=== PATIENT | female | born 1990 | race Caucasian/White ===

== ENCOUNTER 2016-11-25 17:41 | Emergency (ER) | payer OTHER ==
[~2016-11-25] VITALS: Wt 70.0 kg
[~2016-11-25 17:41] MED LIST: ALBU8.5H3 INH; HYDR-905 PO; IBUP800T25 PO
[2016-11-25] MEDS ORDERED: HYDR-906 PO ×2 (18:33→18:39)
[2016-11-25] MEDS ORDERED: DOXY100T20 PO (18:33)
[2016-11-25] MEDS ORDERED: DIPH28.33 TP (18:33)
--- NOTE | 2016-11-25 20:33 | ERD ---
ER Documentation Chief Complaint Date/Time DATE: 11/25/16 TIME: 20:29 Chief Complaint Insect bite to right thigh HPI 26-year-old female patient with a past medical history of asthma presents to the ED complaining of a rash noted on her right inner and outer thigh. States that she was standing outside of her house in [place] and felt something bite her but is unsure what bit her. States that she started to notice a rash on the right inner thigh 4 days ago and a new one interrupted 3 days ago. Reports that she saw her primary care physician, Dr. Justin Wilson and he prescribed her Zithromax, Bactrim and ibuprofen. States that she is taking 1 dose of the antibiotics. States that her rashes do itch and is very painful. Denies seeing any ticks, mosquitoes. Denies any fever, chills, weakness, loss of sensation, loss of range of motion, chest pain, shortness of breath, nausea, vomiting. ROS All systems reviewed and are negative except as per history of present illness. Medications Home Meds Active Scripts Hydrocodone/Acetaminophen (Strasburg 5-325 Tablet) 1 Each Tablet, 1 TAB PO Q6H Y for PAIN, #7 TAB Prov:YANELY FRANCISCO PA-C 11/25/16 Diphenhydramine Hcl/Zinc Acet (Benadryl Itch Stopping Crm) 28.3 Gm Cream.gm., 1 APPLIC TP BID, #1 TUB Prov:YANELY FRANCISCO PA-C 11/25/16 Doxycycline Hyclate* (Doxycycline Hyclate*) 100 Mg Tablet.dr, 100 MG PO BID for 10 Days, TAB Prov:YANELY FRANCISCO PA-C 11/25/16 Hydrocodone/Acetaminophen (Strasburg 7.5-325 Tablet) 1 Each Tablet, 1 EACH PO every 4-6 hours, #14 TAB Prov:BAIRON SULLIVANSTOLOS A. DO 05/18/16 Ibuprofen* (Motrin*) 800 Mg Tab, 800 MG PO Q6H Y for PAIN AND OR ELEVATED TEMP, #30 TAB Prov:LEKKOSBAIRONSTOLOS A. DO 05/18/16 Reported Medications Albuterol Sulfate* (Proair HFA*) 8.5 Gm Hfa.aer.ad, 1-2 PUFF INH QID Y for SHORTNESS OF BREATH, INH 05/16/14 Allergies Allergies: Coded Allergies: No Known Allergy (Unverified , 05/16/14) PMhx/Soc History of Surgery: No Anesthesia Reaction: No Hx Neurological Disorder: No Hx Respiratory Disorders: Yes (asthma) Hx Cardiac Disorders: No Hx Psychiatric Problems: No Hx Miscellaneous Medical Probl: Yes (MIGRAINES) Hx Alcohol Use: No Hx Substance Use: No Hx Tobacco Use: No Physical Exam Vitals Vital Signs Date Time Temp Pulse Resp B/P Pulse Ox O2 Delivery O2 Flow Rate FiO2 11/25/16 17:51 98.8 80 20 129/81 98 Physical Exam Const: [id number], well-nourished. In no acute distress. Head: Atraumatic, normocephalic Eyes: Normal Conjunctiva without injection ENT: Normal external ear, nose and mouth. Neck: Full range of motion. No meningismus. Resp: Clear to auscultation bilaterally. No wheezing, rhonchi, rales, or crackles. No accessory muscle use. No retractions. Cardio: Regular rate and rhythm, no murmurs Skin: No petechiae or rashes Back: No midline tenderness. No CVA tenderness. Ext: No cyanosis, or edema. Cap refill less than 2 seconds. Distal pulses intact bilaterally. 7 cm blanching erythematous rash surrounding a 3 cm beefy red circular rash in the middle with slight yellowish and ecchymotic appearance right inner thigh. 2 cm blanching erythematous rash noted on the lateral aspect of patient's right young. No fluctuance, bleeding, induration, lymphatic streaking noted. Neur: Awake and alert. Normal gait and coordination. Muscle strength 5/5. Sensation intact bilaterally. Psych: Normal Mood and Affect Procedures/MDM This is a 26-year-old female patient with a past medical history of asthma presents to the ED complaining of an insect bite to her right thigh and right lateral young. Patient is afebrile and nontoxic-appearing. Patient has normal vital signs. Patient's rash could likely be secondary to an insect bite however due to its target-like lesion, this case was discussed with my supervising physician, Dr. Resendez who stated that we can change the Zithromax antibiotics to doxycycline. Patient is mainly here for pain. Patient will be given a course of Strasburg for breakthrough pain. Patient now should be completing the course of Bactrim, doxycycline. Other differential diagnosis considered include but is not limited to allergic contact dermatitis, urticaria , insect bites, eczema, tinea infection, psoriasis. Low suspicion for scabies, SJS/TEN, erythema multiforme, sepsis, cellulitis, necrotizing fascitis, gangrene , meningococcemia or other emergent conditions. Discharge medications: Strasburg, Benadryl itch cream, doxycycline Follow up with primary care physician in 2-3 days for a wound check. Instructed patient to return to the ED sooner for any worsening symptoms. Patient's questions were answered. Patient understood and agreed with discharge plan. Patient discharged stable. Departure Diagnosis: Primary Impression: Insect bite Encounter type: initial encounter Qualified Code: W57.XXXA - Insect bite, initial encounter Condition: Stable Patient Instructions: Preventing Lyme Disease, Insect Bite Referrals: [facility] YOU HAVE RECEIVED A MEDICAL SCREENING EXAM AND THE RESULTS INDICATE THAT YOU DO NOT HAVE A CONDITION THAT REQUIRES URGENT TREATMENT IN THE EMERGENCY DEPARTMENT. FURTHER EVALUATION AND TREATMENT OF YOUR CONDITION CAN WAIT UNTIL YOU ARE SEEN IN YOUR DOCTORS OFFICE WITHIN THE NEXT 1-2 DAYS. IT IS YOUR RESPONSIBILITY TO MAKE AN APPOINTMENT FOR FOLOW-UP CARE. IF YOU HAVE A PRIMARY DOCTOR --you should call your primary doctor and schedule an appointment IF YOU DO NOT HAVE A PRIMARY DOCTOR YOU CAN CALL OUR PHYSICIAN REFERRAL HOTLINE AT IF YOU CAN NOT AFFORD TO SEE A PHYSICIAN YOU CAN CHOSE FROM THE FOLLOWING [facility] [address] [facility]. [facility] [address] [facility] [facility] [address] [facility] [address] [facility]. [facility] [address] [facility]. [facility]. [address] [facility]. [facility] YOU HAVE RECEIVED A MEDICAL SCREENING EXAM AND THE RESULTS INDICATE THAT YOU DO NOT HAVE A CONDITION THAT REQUIRES URGENT TREATMENT IN THE EMERGENCY DEPARTMENT. FURTHER EVALUATION AND TREATMENT OF YOUR CONDITION CAN WAIT UNTIL YOU ARE SEEN IN YOUR DOCTORS OFFICE WITHIN THE NEXT 1-2 DAYS. IT IS YOUR RESPONSIBILITY TO MAKE AN APPOINTMENT FOR FOLOW-UP CARE. IF YOU HAVE A PRIMARY DOCTOR --you should call your primary doctor and schedule and appointment IF YOU DO NOT HAVE A PRIMARY DOCTOR YOU CAN CALL OUR PHYSICIAN REFERRAL HOTLINE AT . IF YOU CAN NOT AFFORD TO SEE A PHYSICIAN YOU CAN CHOSE FROM THE FOLLOWING [facility] INSTITUTIONS: [facility] [address] [place] [address] [facility] [address] [place], [place] [id number] [place] [address] [address] [place] [address] [facility] Additional Instructions: Call your primary care doctor TOMORROW for an appointment during the next 2-3 days for a wound check.See the doctor sooner or return here if your condition worsens before your appointment time. YANELY FRANCISCO PA-C Nov 25, 2016 20:33
== END 2016-11-25 18:34 | disposition home or self-care (01) ==
LOC: E/R 17:41
DX: S70.361A Insect bite (nonvenomous), right thigh, initial encounter (principal); S80.861A Insect bite (nonvenomous), right lower leg, initial encounter; J45.909 Unspecified asthma, uncomplicated; W57.XXXA Bitten or stung by nonvenomous insect and other nonvenomous arthropods, initial encounter; Y92.9 Unspecified place or not applicable
CPT/HCPCS: 99283

== ENCOUNTER 2016-11-27 18:31 | Emergency (ER) | payer OTHER ==
[~2016-11-27] VITALS: Ht 154.9 cm; Wt 74.5 kg
[~2016-11-27 18:31] MED LIST changes: +DIPH28.33 TP; +DOXY100T20 PO; +HYDR-906 PO
[2016-11-27 18:46] VITALS: Ht 154.9 cm; Wt 74.5 kg
[2016-11-27] MEDS ORDERED: SOD CHLORIDE 0.9% 1,000 ML IV STA (19:30)
[2016-11-27] MEDS ORDERED: KETOROLAC 15 MG INJ IV STA (19:30)
--- NOTE | 2016-11-27 19:46 | ERD ---
ER Documentation Chief Complaint Date/Time DATE: 11/27/16 TIME: 19:44 Chief Complaint knee pain x today HPI 26 year old female returns to the emergency department for the second time this week for a new onset of right new pain that started this morning and worsening lesions on her right inner thigh and right lateral lower extremity for 5-6 days , which was evaluated 2 days ago at this facility on 11/25/2016. Patient was given doxycycline for tick bite, she states she is complaint with medication. Patient stated right knee started to become painful, locating it mostly in the right lateral knee 03/23, she describes it as achy with some numbness. She denies swelling or restricted range of motion. Patient states that the lesion on her right inner thigh erupted first 6 days ago , she noticed it suddenly when she woke up, the next day another lesion on her right lateral lower extremity occurred. She states that the lesions are itchy and tender. Patient states she went to see her primary care physician before she was evaluated at this facility and she was given her Zithromax, Bactrim and ibuprofen. Patient denies fevers, recent traveling, hiking. Denies chest pain or shortness of breath ROS All systems reviewed and are negative except as per history of present illness. Medications Home Meds Active Scripts Ibuprofen* (Ibuprofen*) 400 Mg Tablet, 400 MG PO Q6H Y for PAIN, #30 TAB Prov:MARLEN MARTINEZ PA-C 11/27/16 Doxycycline Hyclate* (Doxycycline Hyclate*) 100 Mg Tablet., 100 MG PO BID for 30 Days, TAB Prov:MARLEN MARTINEZ PA-C 11/27/16 Hydrocodone/Acetaminophen (Bono 5-325 Tablet) 1 Each Tablet, 1 TAB PO Q6H Y for PAIN, #7 TAB Prov:YANELY FRANCISCO PA-C 11/25/16 Diphenhydramine Hcl/Zinc Acet (Benadryl Itch Stopping Crm) 28.3 Gm Cream.gm., 1 APPLIC TP BID, #1 TUB Prov:YANELY FRANCISCO PA-C 11/25/16 Doxycycline Hyclate* (Doxycycline Hyclate*) 100 Mg Tablet., 100 MG PO BID for 10 Days, TAB Prov:YANELY FRANCISCO PA-C 11/25/16 Hydrocodone/Acetaminophen (Bono 7.5-325 Tablet) 1 Each Tablet, 1 EACH PO every 4-6 hours, #14 TAB Prov:RAIN SULLIVAN DO 05/18/16 Ibuprofen* (Motrin*) 800 Mg Tab, 800 MG PO Q6H Y for PAIN AND OR ELEVATED TEMP, #30 TAB Prov:RAIN SULLIVAN. DO 05/18/16 Reported Medications Albuterol Sulfate* (Proair HFA*) 8.5 Gm Hfa.aer.ad, 1-2 PUFF INH QID Y for SHORTNESS OF BREATH, INH 05/16/14 Allergies Allergies: Coded Allergies: No Known Allergy (Unverified , 05/16/14) PMhx/Soc Medical and Surgical Hx: pt denies Surgical Hx History of Surgery: No Anesthesia Reaction: No Hx Neurological Disorder: No Hx Respiratory Disorders: Yes (asthma) Hx Cardiac Disorders: No Hx Psychiatric Problems: No Hx Miscellaneous Medical Probl: Yes (MIGRAINES) Hx Alcohol Use: No Hx Substance Use: No Hx Tobacco Use: No Smoking Status: Never smoker Physical Exam Vitals Vital Signs Date Time Temp Pulse Resp B/P Pulse Ox O2 Delivery O2 Flow Rate FiO2 11/27/16 22:46 97.8 16 98 Room Air 11/27/16 18:46 97.8 83 16 133/79 98 Physical Exam General: WD/WN, in no apparent distress, non-toxic appearing HENT: NC/AT Eyes: Conjunctiva normal Neck: Supple Pulm: Clear to auscultation, normal labored breathing; no wheezing/rales/ rhonchi heard CV: Good capillary refill GI: Non-distended, no guarding Back: No masses Ext: No clubbing, cyanosis, or edema Tender palpation of the right lateral knee, full range of motion Neuro: Moves on all fours Skin: Erythematous central clearing target lesion noted on the right lateral young around 3 cm x 3 cm and Erythematous central clearing target lesion noted on the right inner thigh around 6 cm x 6 cm, Normal turgor, color, and temperature. No ulcerations or rashes noted. Psych: Normal mood Result Diagram: 11/27/16 1950 11/27/16 1950 Results 24 hrs Laboratory Tests Test 11/27/16 19:50 11/27/16 21:46 White Blood Count 13.210^3/ul Red Blood Count 4.6610^6/ul Hemoglobin 13.7g/dl Hematocrit 41.7% Mean Corpuscular Volume 89.5fl Mean Corpuscular Hemoglobin 29.4pg Mean Corpuscular Hemoglobin Concent 32.9g/dl Red Cell Distribution Width 12.4% Platelet Count 81534^3/UL Mean Platelet Volume 10.4fl Neutrophils % 58.3% Lymphocytes % 32.9% Monocytes % 7.0% Eosinophils % 1.4% Basophils % 0.2% Nucleated Red Blood Cells % 0.0/100WBC Neutrophils # 7.710^3/ul Lymphocytes # 4.410^3/ul Monocytes # 0.910^3/ul Eosinophils # 0.210^3/ul Basophils # 0.010^3/ul Nucleated Red Blood Cells # 0.010^3/ul Erythrocyte Sedimentation Rate 8mm/Hr Sodium Level 138mmol/L Potassium Level 3.7mmol/L Chloride Level 101mmol/L Carbon Dioxide Level 25mmol/L Anion Gap 16 Blood Urea Nitrogen 10mg/dl Creatinine 0.79mg/dl Glucose Level 103mg/dl Calcium Level 9.5mg/dl Total Bilirubin 0.5mg/dl Direct Bilirubin 0.00mg/dl Indirect Bilirubin 0.5mg/dl Aspartate Amino Transf (AST/SGOT) 17IU/L Alanine Aminotransferase (ALT/SGPT) 23IU/L Alkaline Phosphatase 91IU/L Troponin I < 0.012ng/ml C-Reactive Protein 0.8mg/dl Total Protein 8.4g/dl Albumin 4.8g/dl Globulin 3.60g/dl Albumin/Globulin Ratio 1.33 Lipase 75U/L Urine Color YELLOW Urine Clarity CLOUDY Urine pH 6.0 Urine Specific Flynn >=1.030 Urine Ketones NEGATIVE Urine Nitrite NEGATIVE Urine Bilirubin NEGATIVE Urine Urobilinogen 0.2 E.U./dL Urine Leukocyte Esterase NEGATIVE Urine Microscopic RBC NONE SEEN/HPF Urine Microscopic WBC 2-5/HPF Urine Squamous Epithelial Cells MODERATE Urine Bacteria FEW Urine Mucus MODERATE Urine Yeast OCCASIONAL Urine Hemoglobin NEGATIVE Urine Glucose NEGATIVE% Urine Total Protein NEGATIVE Current Medications Medications (Trade) Dose Ordered Sig/Jackie Route PRN Reason Start Time Stop Time Status Last Admin Dose Admin Sodium Chloride (NS) 1,000 ml @ 1,000 mls/hr Q1H STAT IV 4/16/17 19:30 11/27/16 20:29 DC 11/27/16 19:55 Ketorolac Tromethamine (Toradol) 15 mg ONCE STAT IV 11/27/16 19:30 11/27/16 19:33 DC 11/27/16 19:55 Procedures/MDM 26 year old female returns to the emergency department for the second time this week for a new onset of right new pain that started this morning and worsening lesions on her right inner thigh and right lateral lower extremity for 5-6 days , which was evaluated 2 days ago at this facility on 11/25/2016. Differentials include Lyme disease vs other acute conditions of erythema migrans. Patient was given doxycycline for tick bite, she states she is complaint with medication. Patient stated right knee started to become painful. Her knee examination is unremarkable there was no swelling, erythema or induration. Patient had full range of motion. She was neurovascular intact. The lesions on her right lateral young and her right inner thigh have darkened and continued to be painful for her. Patient has been compliant with her doxycycline that was prescribed 2 days ago for the tick bite, I have discussed this case with my supervising physician who is also evaluated the patient and suggested blood work, blood cultures and for her to have us should follow-up with her primary care physician. Blood work was done in the ED. Lab work was drawn. CBC did not show any evidence of leukocytosis or anemia. CMP did not show any evidence of renal, liver, or electrolyte abnormalities. Lipase was normal. UA did not show any evidence of hemoglobin or urinary tract infection. ESR was unremarkable. CRP was unremarkable. There was no evidence of any neurological symptoms or carditis. EKG was done and was unremarkable. Patient is suitable to follow-up with primary care physician. I discussed with her to return the ER for any worsening symptoms. She understands and agrees with this plan EKG: read and signed off by myself and Rate/Rhythm: Normal Sinus Rhythm at 71 bpm QRS, ST, T-waves: Inverted T wave; No changes consistent w/ acute ischemia Impression: No evidence of ischemia or arrhythmia was consulted and agrees with plan above Departure Diagnosis: Primary Impression: Knee pain Additional Impression: Erythema migrans (Lyme disease) Condition: Stable MARLEN MARTINEZ PA-C Nov 27, 2016 19:45
[2016-11-27 20:25] LABS: ADD SCAN DIFF NO
[2016-11-27 20:26] LABS: BASOPHILS % 0.2 % (0.0-2.0); EOSINOPHILS # 0.2 10^3/ul (0.0-0.5); EOSINOPHILS % 1.4 % (0.0-7.0); HEMATOCRIT 41.7 % (37.0-47.0); HEMOGLOBIN 13.7 g/dl (12.0-16.0); LYMPHOCYTES # 4.4 10^3/ul (0.8-2.9); LYMPHOCYTES % 32.9 % (15.0-51.0); MEAN CORPUSCULAR HEMOGLOBIN 29.4 pg (29.0-33.0); MEAN CORPUSCULAR HGB CONC 32.9 g/dl (32.0-37.0); MEAN CORPUSCULAR VOLUME 89.5 fl (82.0-101.0); MEAN PLATELET VOLUME 10.4 fl (7.4-10.4); MONOCYTE # 0.9 10^3/ul (0.3-0.9); NEUTROPHIL # 7.7 10^3/ul (1.6-7.5); NEUTROPHILS % 58.3 % (39.0-77.0); PLATELET COUNT 304 10^3/UL (140-415); RED BLOOD COUNT 4.66 10^6/ul (4.20-5.40); RED CELL DISTRIBUTION WIDTH 12.4 % (11.5-14.5); WHITE BLOOD COUNT 13.2 10^3/ul (4.8-10.8)
[2016-11-27 20:48] LABS: ALBUMIN 4.8 g/dl (3.3-4.9); CHLORIDE 101 mmol/L (97-110); SODIUM 138 mmol/L (135-144)
[2016-11-27 20:49] LABS: POTASSIUM 3.7 mmol/L (3.5-5.1)
[2016-11-27 20:51] LABS: ALBUMIN/GLOBULIN RATIO 1.33; ALKALINE PHOSPHATASE 91 IU/L (42-121); ANION GAP 16 (8-16); ASPARTATE AMINO TRANSFERASE 17 IU/L (15-46); BILIRUBIN,INDIRECT 0.5 mg/dl (0-1.1); BILIRUBIN,TOTAL 0.5 mg/dl (0.2-1.3); BLOOD UREA NITROGEN 10 mg/dl (7-20); CARBON DIOXIDE 25 mmol/L (21-31); CREATININE 0.79 mg/dl (0.44-1.00); TOTAL PROTEIN 8.4 g/dl (6.1-8.1)
[2016-11-27 20:52] LABS: ALANINE AMINOTRANSFERASE 23 IU/L (13-69); CALCIUM 9.5 mg/dl (8.4-10.2); GLUCOSE 103 mg/dl (70-220)
[2016-11-27 20:54] LABS: C-REACTIVE PROTEIN 0.8 mg/dl (0.0-0.9)
[2016-11-27 21:05] LABS: TROPONIN-I < 0.012 ng/ml (0.00-0.12)
[2016-11-27 22:00] LABS: URINE BILIRUBIN (Dip) NEGATIVE (NEGATIVE); URINE BLOOD (Dip) NEGATIVE (NEGATIVE); URINE GLUCOSE (Dip) NEGATIVE (NEGATIVE); URINE KETONES (Dip) NEGATIVE (NEGATIVE); URINE LEUKOCYTE ESTERASE (Dip) NEGATIVE (NEGATIVE); URINE NITRITE (Dip) NEGATIVE (NEGATIVE); URINE TOTAL PROTEIN (Dip) NEGATIVE (NEGATIVE); URINE UROBILINOGEN (Dip) 0.2 E.U./dL (0.1-1.0)
[2016-11-27 22:16] LABS: ADD UMIC YES; URINE COLOR YELLOW (YELLOW)
[2016-11-27 22:18] LABS: BACTERIA,URINE FEW; MUCUS,URINE MODERATE; SQUAMOUS EPITHELIAL CELL,UR MODERATE; URINE RBCS NONE SEEN /HPF (0)
[2016-11-27] MEDS ORDERED: IBUP400T22 PO (22:28)
[2016-11-27] MEDS ORDERED: DOXY100T20 PO (22:28)
[2016-11-27 22:46] VITALS: RESP 16; TEMP 97.8
== END 2016-11-27 22:47 | disposition home or self-care (01) ==
LOC: E/R 18:31 → FTE 22:47
DX: M25.561 Pain in right knee (principal); A69.20 Lyme disease, unspecified; J45.909 Unspecified asthma, uncomplicated
CPT/HCPCS: 80053; 81001; 83690; 84484; 85025; 85651; 86140; 87040; 93005; J1885; J7030; 36415; 81003; 96374

== ENCOUNTER 2017-04-12 13:58 | Emergency (ER) | payer OTHER ==
[~2017-04-12] VITALS: Ht 157.5 cm; Wt 80.5 kg
[~2017-04-12 13:58] MED LIST changes: +IBUP400T22 PO
[2017-04-12 14:02] VITALS: Ht 157.5 cm; Wt 80.5 kg
[2017-04-12] MEDS ORDERED: SOD CHLORIDE 0.9% 1,000 ML IV STA (15:35)
[2017-04-12] MEDS ORDERED: ACETAMINOPHEN 325 MG TAB PO ONE (16:00)
[2017-04-12] MEDS ORDERED: MECLIZINE 12.5 MG TAB PO ONE (16:00)
[2017-04-12 16:16] LABS: BASOPHILS % 0.3 % (0.0-2.0); EOSINOPHILS # 0.1 10^3/ul (0.0-0.5); EOSINOPHILS % 0.9 % (0.0-7.0); HEMATOCRIT 40.6 % (37.0-47.0); HEMOGLOBIN 13.6 g/dl (12.0-16.0); LYMPHOCYTES # 3.4 10^3/ul (0.8-2.9); LYMPHOCYTES % 28.6 % (15.0-51.0); MEAN CORPUSCULAR HEMOGLOBIN 29.2 pg (29.0-33.0); MEAN CORPUSCULAR HGB CONC 33.5 g/dl (32.0-37.0); MEAN CORPUSCULAR VOLUME 87.3 fl (82.0-101.0); MEAN PLATELET VOLUME 9.9 fl (7.4-10.4); MONOCYTE # 1.2 10^3/ul (0.3-0.9); MONOCYTES % 9.8 % (0.0-11.0); NEUTROPHILS % 59.9 % (39.0-77.0); PLATELET COUNT 268 10^3/UL (140-415); RED BLOOD COUNT 4.65 10^6/ul (4.20-5.40); RED CELL DISTRIBUTION WIDTH 12.7 % (11.5-14.5); WHITE BLOOD COUNT 11.8 10^3/ul (4.8-10.8)
[2017-04-12 16:20] LABS: ADD UMIC YES; UR ASCORBIC ACID NEGATIVE (NEGATIVE); UR BACTERIA FEW /HPF (NONE SEEN); UR BILIRUBIN (Dip) NEGATIVE (NEGATIVE); UR BLOOD (Dip) 1+ mg/dL (NEGATIVE); UR CLARITY CLEAR (CLEAR); UR COLOR YELLOW (YELLOW); UR GLUCOSE (Dip) NEGATIVE (NEGATIVE); UR KETONES (Dip) NEGATIVE (NEGATIVE); UR LEUKOCYTE ESTERASE (Dip) NEGATIVE Leu/ul (NEGATIVE); UR MUCUS FEW /HPF (NONE SEEN); UR NITRITE (Dip) NEGATIVE (NEGATIVE); UR RBC 5 /HPF (0-5); UR SPECIFIC GRAVITY (Dip) 1.026 (1.003-1.030); UR TOTAL PROTEIN (Dip) NEGATIVE (NEGATIVE); UR UROBILINOGEN (Dip) 1+ mg/dL (NEGATIVE)
[2017-04-12 16:42] LABS: ALBUMIN 4.5 g/dl (3.3-4.9); ALBUMIN/GLOBULIN RATIO 1.21; BILIRUBIN,INDIRECT 0.8 mg/dl (0-1.1); BILIRUBIN,TOTAL 0.8 mg/dl (0.2-1.3); CALCIUM 9.4 mg/dl (8.4-10.2); CREATININE 0.71 mg/dl (0.44-1.00); POTASSIUM 4.1 mmol/L (3.5-5.1); TOTAL PROTEIN 8.2 g/dl (6.1-8.1)
--- NOTE | 2017-04-12 17:56 | RADRPT ---
PROCEDURE: CT Brain without contrast. CLINICAL INDICATION: Headache, dizziness TECHNIQUE: Routine CT scan of the brain was performed on a high resolution multi detector scanner without intravenous contrast. One or more of the following dose reduction techniques were used: Auto mated exposure control; Adjustment of the mA and/or kV according to patient size; Use of iterative r econstruction technique. CTDI = 44 mGy. DLP = 630 mGy-cm. COMPARISON: No prior relevant examinations are available for comparison. FINDINGS: Hemorrhage: No evidence of intracranial hemorrhage. Acute ischemic changes: No evidence of acute ischemic changes. Mass effect: None. Parenchymal volume: Within normal limits for age. Ventricular system: Concordant with parenchymal volume. Chronic changes: Parenchymal attenuation is within normal limits. Extracranial soft tissues: Unremarkable. Calvarium: No fractures. Paranasal sinuses: Visualized paranasal sinuses are clear. Mastoid air cells: Visualized mastoid air cells are clear. IMPRESSION: No acute intracranial abnormalities. Normal appearance of the brain parenchyma. RPTAT: AADD .Alexei Garcia MD, MD Date Time Electronically viewed and signed by .Alexei Garcia MD, on 04/12/2017 17:56 .B/
[2017-04-12] MEDS ORDERED: IBUP-1542 PO (18:03)
[2017-04-12 18:18] VITALS: BP 112/69; PULSE 68; RESP 18; TEMP 97.8
--- NOTE | 2017-04-12 20:02 | ERD ---
ER Documentation Chief Complaint Date/Time DATE: 04/12/17 TIME: 19:53 Chief Complaint DIZZINESS X 1 WEEK, FELL IN THE SHOWER TODAY, NO KO, WAS HERE LAST WEEK HPI 26-year-old female patient with no significant past medical history presents to the ED complaining of dizziness that started 1 week ago. Patient reports that she was seen here a few days ago and was sent home with meclizine which has not helped with her symptoms. Patient reports that her dizziness does get worse with positional movements. States that she lost her balance and accidentally fell in the shower and hit her head. Denies any loss of consciousness. Denies any neck pain. Denies any chest pain, shortness of breath, fever, chills, cough , rhinorrhea, nausea, vomiting, diarrhea, abdominal pain. Reports that her last menses was around 1 month ago. ROS All systems reviewed and are negative except as per history of present illness. Medications Home Meds Active Scripts Ibuprofen* (Ibuprofen*) 400 Mg Tablet, 400 MG PO Q6H Y for PAIN, #30 TAB Prov:MARLEN MARTINEZ PA-C 11/27/16 Doxycycline Hyclate* (Doxycycline Hyclate*) 100 Mg Tablet., 100 MG PO BID for 30 Days, TAB Prov:MARLEN MARTINEZ PA-C 11/27/16 Hydrocodone/Acetaminophen ([place] 5-325 Tablet) 1 Each Tablet, 1 TAB PO Q6H Y for PAIN, #7 TAB Prov:YANELY FRANCISCO PA-C 11/25/16 Diphenhydramine Hcl/Zinc Acet (Benadryl Itch Stopping Crm) 28.3 Gm Cream.gm., 1 APPLIC TP BID, #1 TUB Prov:YANELY FRANCISCO PA-C 11/25/16 Doxycycline Hyclate* (Doxycycline Hyclate*) 100 Mg Tablet., 100 MG PO BID for 10 Days, TAB Prov:YANELY FRANCISCO PA-C 11/25/16 Hydrocodone/Acetaminophen ([place] 7.5-325 Tablet) 1 Each Tablet, 1 EACH PO every 4-6 hours, #14 TAB Prov:RAIN SULLIVAN DO 05/18/16 Ibuprofen* (Motrin*) 800 Mg Tab, 800 MG PO Q6H Y for PAIN AND OR ELEVATED TEMP, #30 TAB Prov:RAIN SULLIVAN DO 05/18/16 Reported Medications Albuterol Sulfate* (Proair HFA*) 8.5 Gm Hfa.aer.ad, 1-2 PUFF INH QID Y for SHORTNESS OF BREATH, INH 05/16/14 Allergies Allergies: Coded Allergies: No Known Allergy (Unverified , 05/16/14) PMhx/Soc History of Surgery: No Anesthesia Reaction: No Hx Neurological Disorder: No Hx Respiratory Disorders: Yes (asthma) Hx Cardiac Disorders: No Hx Psychiatric Problems: No Hx Miscellaneous Medical Probl: Yes (MIGRAINES) Hx Alcohol Use: No Hx Substance Use: No Hx Tobacco Use: No Smoking Status: Never smoker Physical Exam Vitals Vital Signs Date Time Temp Pulse Resp B/P Pulse Ox O2 Delivery O2 Flow Rate FiO2 04/12/17 18:18 97.8 68 18 112/69 100 Room Air 04/12/17 16:21 80 113/64 80 115/70 74 114/66 04/12/17 14:02 98.2 101 18 133/78 95 Physical Exam Const: Cvc-[id number], well-nourished. In no acute distress. Head: Atraumatic, normocephalic. No hematoma. No westfall sign. Eyes: Normal Conjunctiva without injection. No purulent discharge. PERRLA. EOMI ENT: Normal external ear. Ear canal without erythema. Tympanic membrane pearly chu without effusion or bulging. No hemotympanum. Nasal canal clear with normal turbinates. Moist oropharynx without tonsillar exudates. Non- erythematous pharynx. Uvula midline. No drooling. No trismus. Neck: No cervical midline tenderness. Full range of motion. No meningismus. No cervical lymphadenopathy. No JVD. Resp: Clear to auscultation bilaterally. No wheezing, rhonchi, rales, or crackles. No accessory muscle use. No retractions. Cardio: Regular rate and rhythm. No murmurs, rubs or gallops. Abd: Soft, non tender, non distended. Normal bowel sounds. No palpable masses. No rebound tenderness. No guarding. Negative McBurney's Point. Negative Pulido's Sign. Skin: Normal skin turgor. No petechiae or rashes Back: No midline tenderness. No CVA tenderness. Ext: No cyanosis, or edema. Distal pulses intact bilaterally. Neur: Awake and alert. Normal gait. Normal coordination. Cranial Nerves II- VII intact. Normal finger to nose. Muscle strength 5/5. Sensation intact. Psych: Normal Mood and Affect Result Diagram: 04/12/17 1600 04/12/17 1600 Results 24 hrs Laboratory Tests Test 04/12/17 16:00 White Blood Count 11.810^3/ul Red Blood Count 4.6510^6/ul Hemoglobin 13.6g/dl Hematocrit 40.6% Mean Corpuscular Volume 87.3fl Mean Corpuscular Hemoglobin 29.2pg Mean Corpuscular Hemoglobin Concent 33.5g/dl Red Cell Distribution Width 12.7% Platelet Count 80262^3/UL Mean Platelet Volume 9.9fl Neutrophils % 59.9% Lymphocytes % 28.6% Monocytes % 9.8% Eosinophils % 0.9% Basophils % 0.3% Nucleated Red Blood Cells % 0.0/100WBC Neutrophils # (Manual) 7.110^3/ul Lymphocytes # 3.410^3/ul Monocytes # 1.210^3/ul Eosinophils # 0.110^3/ul Basophils # 0.010^3/ul Nucleated Red Blood Cells # 0.010^3/ul Urine Color YELLOW Urine Clarity CLEAR Urine pH 5.0 Urine Specific [place] 1.026 Urine Ketones NEGATIVEmg/dL Urine Nitrite NEGATIVEmg/dL Urine Bilirubin NEGATIVEmg/dL Urine Urobilinogen 1+mg/dL Urine Leukocyte Esterase NEGATIVELeu/ul Urine Microscopic RBC 5/HPF Urine Microscopic WBC 2/HPF Urine Bacteria FEW/HPF Urine Mucus FEW/HPF Urine Hemoglobin 1+mg/dL Urine Glucose NEGATIVEmg/dL Urine Total Protein NEGATIVEmg/dl Sodium Level 142mmol/L Potassium Level 4.1mmol/L Chloride Level 101mmol/L Carbon Dioxide Level 25mmol/L Anion Gap 20 Blood Urea Nitrogen 14mg/dl Creatinine 0.71mg/dl Glucose Level 100mg/dl Calcium Level 9.4mg/dl Total Bilirubin 0.8mg/dl Direct Bilirubin 0.00mg/dl Indirect Bilirubin 0.8mg/dl Aspartate Amino Transf (AST/SGOT) 18IU/L Alanine Aminotransferase (ALT/SGPT) 29IU/L Alkaline Phosphatase 81IU/L Total Protein 8.2g/dl Albumin 4.5g/dl Globulin 3.70g/dl Albumin/Globulin Ratio 1.21 Current Medications Medications (Trade) Dose Ordered Sig/Jackie Route PRN Reason Start Time Stop Time Status Last Admin Dose Admin Sodium Chloride (NS) 1,000 ml @ 1,000 mls/hr Q1H STAT IV 04/12/17 15:35 04/12/17 16:35 DC 04/12/17 16:02 Acetaminophen (Tylenol Tab) 650 mg ONCE ONCE PO 04/12/17 16:00 04/12/17 16:01 DC 04/12/17 16:03 Meclizine HCl (Antivert) 12.5 mg ONCE ONCE PO 04/12/17 16:00 04/12/17 16:01 DC 04/12/17 16:02 Procedures/MDM 26-year-old female patient with no significant past medical history presents the ED complaining of dizziness that started 1 week ago. Patient is afebrile and nontoxic-appearing. Patient has normal vital signs. Patient was further worked up with CBC, CMP, lipase, UA, urine , CT of the brain without contrast since patient reports that her symptoms are not improving with meclizine. Patient was given 1 L of normal saline. Negative orthostatic vital signs. CBC: No leukocytosis. No e/o of systemic infection. No e/o anemia. CMP: No e/o severe acidosis, alkalosis, renal failure, diabetic ketoacidosis, liver disease Lipase within normal limits. Urine: No leukocyte esterase, no nitrites, no hematuria. Urine : Negative EKG reviewed and interpreted by Dr. Gibson Rate/Rhythm: [93 bpm, Normal Sinus Rhythm] No ectopy, no ST elevations, normal axis. QRS, ST, T-waves: [No changes consistent w/ acute ischemia] Impression: [No evidence of ischemia or arrhythmia] PROCEDURE: CT Brain without contrast. CLINICAL INDICATION: Headache, dizziness TECHNIQUE: Routine CT scan of the brain was performed on a high resolution multi detector scanner without intravenous contrast. One or more of the following dose reduction techniques were used: Automated exposure control; Adjustment of the mA and/or kV according to patient size; Use of iterative reconstruction technique. CTDI = 44 mGy. DLP = 630 mGy-cm. COMPARISON: No prior relevant examinations are available for comparison. FINDINGS: Hemorrhage: No evidence of intracranial hemorrhage. Acute ischemic changes: No evidence of acute ischemic changes. Mass effect: None. Parenchymal volume: Within normal limits for age. Ventricular system: Concordant with parenchymal volume. Chronic changes: Parenchymal attenuation is within normal limits. Extracranial soft tissues: Unremarkable. Calvarium: No fractures. Paranasal sinuses: Visualized paranasal sinuses are clear. Mastoid air cells: Visualized mastoid air cells are clear. IMPRESSION: No acute intracranial abnormalities. Normal appearance of the brain parenchyma. Patient reports meclizine is not working her for dizziness. Dizziness of unknown etiology. Follow up with primary care physician in 1-2 days for referral to ears nose throat specialist and neurologist. Low suspicion for intracranial bleed, subarachnoid hemorrhage, meningitis, TIA, stroke, seizures, subdural hematoma, epidural hematoma, or other emergent conditions. Low suspicion for acute myocardial infarction, pneumothorax, pneumonia, cardiac tamponade, pulmonary embolism, AAA, aortic dissection, Boerhaave's syndrome, cardiac dysrhythmias,meningitis, intracranial bleed, seizure, stroke, TIA or other emergent conditions. Instructed patient to return to the ED sooner for any worsening symptoms. Patient's questions were answered. Patient understood and agreed with discharge plan. Patient discharged stable. Departure Diagnosis: Primary Impression: Dizziness Additional Impression: Head injury Encounter type: initial encounter Qualified Code: S09.90XA - Injury of head , initial encounter Condition: Stable Patient Instructions: Dizziness, Unk Cause, Headache, Unspecified, HEAD INJURY , No Wake-Up (Adult) Referrals: [facility] YOU HAVE RECEIVED A MEDICAL SCREENING EXAM AND THE RESULTS INDICATE THAT YOU DO NOT HAVE A CONDITION THAT REQUIRES URGENT TREATMENT IN THE EMERGENCY DEPARTMENT. FURTHER EVALUATION AND TREATMENT OF YOUR CONDITION CAN WAIT UNTIL YOU ARE SEEN IN YOUR DOCTORS OFFICE WITHIN THE NEXT 1-2 DAYS. IT IS YOUR RESPONSIBILITY TO MAKE AN APPOINTMENT FOR FOLOW-UP CARE. IF YOU HAVE A PRIMARY DOCTOR --you should call your primary doctor and schedule an appointment IF YOU DO NOT HAVE A PRIMARY DOCTOR YOU CAN CALL OUR PHYSICIAN REFERRAL HOTLINE AT IF YOU CAN NOT AFFORD TO SEE A PHYSICIAN YOU CAN CHOSE FROM THE FOLLOWING [facility] [address] [facility]. [facility] [address] [facility] [address] [facility] [address] [facility]. [facility] [address] [facility]. [facility] [address] [facility]. [facility] YOU HAVE RECEIVED A MEDICAL SCREENING EXAM AND THE RESULTS INDICATE THAT YOU DO NOT HAVE A CONDITION THAT REQUIRES URGENT TREATMENT IN THE EMERGENCY DEPARTMENT. FURTHER EVALUATION AND TREATMENT OF YOUR CONDITION CAN WAIT UNTIL YOU ARE SEEN IN YOUR DOCTORS OFFICE WITHIN THE NEXT 1-2 DAYS. IT IS YOUR RESPONSIBILITY TO MAKE AN APPOINTMENT FOR FOLOW-UP CARE. IF YOU HAVE A PRIMARY DOCTOR --you should call your primary doctor and schedule and appointment IF YOU DO NOT HAVE A PRIMARY DOCTOR YOU CAN CALL OUR PHYSICIAN REFERRAL HOTLINE AT . IF YOU CAN NOT AFFORD TO SEE A PHYSICIAN YOU CAN CHOSE FROM THE FOLLOWING [facility] INSTITUTIONS: [facility] [address] [place] [address] [facility] [address] [place], [place] [id number] [place] [address] [address] [place] [address] [facility] URGENT CARE/SPECIALTIES Additional Instructions: Call your primary care doctor TOMORROW for an appointment during the next 1-2 days for a referral to see an ears nose throat specialist and neurologist. See the doctor sooner or return here if your condition worsens before your appointment time. YANELY FRANCISCO PA-C Apr 12, 2017 20:02 YANELY FRANCISCO PA-C Apr 12, 2017 20:02
== END 2017-04-12 18:19 | disposition home or self-care (01) ==
LOC: FTE 13:58
DX: S09.90XA Unspecified injury of head, initial encounter (principal); J45.909 Unspecified asthma, uncomplicated; W18.2XXA Fall in (into) shower or empty bathtub, initial encounter; Y92.9 Unspecified place or not applicable
CPT/HCPCS: 36415; 70450; 80053; 81001; 85025; 93005; J7030; Z7502; Z7610

== ENCOUNTER 2017-07-06 08:37 | Emergency (ER) | payer OTHER ==
[~2017-07-06] VITALS: Ht 160 cm; Wt 83.0 kg
[2017-07-06 08:40] VITALS: Ht 160 cm; Wt 83.0 kg
[2017-07-06] MEDS ORDERED: ONDANSETRON 4 MG INJ IV STA (09:01)
[2017-07-06 09:24] LABS: BASOPHILS % 0.4 % (0.0-2.0); EOSINOPHILS # 0.1 10^3/ul (0.0-0.5); EOSINOPHILS % 0.8 % (0.0-7.0); HEMOGLOBIN 13.4 g/dl (12.0-16.0); LYMPHOCYTES # 2.1 10^3/ul (0.8-2.9); LYMPHOCYTES % 19.6 % (15.0-51.0); MEAN CORPUSCULAR HEMOGLOBIN 28.6 pg (29.0-33.0); MEAN CORPUSCULAR HGB CONC 32.7 g/dl (32.0-37.0); MEAN CORPUSCULAR VOLUME 87.4 fl (82.0-101.0); MEAN PLATELET VOLUME 9.7 fl (7.4-10.4); MONOCYTE # 1.1 10^3/ul (0.3-0.9); MONOCYTES % 10.1 % (0.0-11.0); NEUTROPHIL # 7.4 10^3/ul (1.6-7.5); NEUTROPHILS % 68.7 % (39.0-77.0); PLATELET COUNT 267 10^3/UL (140-415); RED BLOOD COUNT 4.69 10^6/ul (4.20-5.40); RED CELL DISTRIBUTION WIDTH 12.7 % (11.5-14.5); WHITE BLOOD COUNT 10.7 10^3/ul (4.8-10.8)
[2017-07-06 09:30] LABS: ADD UMIC YES; UR ASCORBIC ACID NEGATIVE (NEGATIVE); UR BACTERIA FEW /HPF (NONE SEEN); UR BILIRUBIN (Dip) NEGATIVE (NEGATIVE); UR BLOOD (Dip) 1+ mg/dL (NEGATIVE); UR CLARITY SLIGHTLY CLOUDY (CLEAR); UR COLOR YELLOW (YELLOW); UR GLUCOSE (Dip) NEGATIVE (NEGATIVE); UR KETONES (Dip) NEGATIVE (NEGATIVE); UR LEUKOCYTE ESTERASE (Dip) NEGATIVE Leu/ul (NEGATIVE); UR MUCUS MANY /HPF (NONE SEEN); UR NITRITE (Dip) NEGATIVE (NEGATIVE); UR RBC 6 /HPF (0-5); UR SPECIFIC GRAVITY (Dip) 1.027 (1.003-1.030); UR SQUAMOUS EPITHELIAL CELL FEW /HPF (FEW); UR TOTAL PROTEIN (Dip) NEGATIVE (NEGATIVE); UR UROBILINOGEN (Dip) NEGATIVE (NEGATIVE)
[2017-07-06 09:41] LABS: ALBUMIN 4.4 g/dl (3.3-4.9); ALBUMIN/GLOBULIN RATIO 1.41; BILIRUBIN,INDIRECT 0.8 mg/dl (0-1.1); BILIRUBIN,TOTAL 0.8 mg/dl (0.2-1.3); CALCIUM 9.3 mg/dl (8.4-10.2); CREATININE 0.71 mg/dl (0.44-1.00); POTASSIUM 4.2 mmol/L (3.5-5.1); TOTAL PROTEIN 7.5 g/dl (6.1-8.1)
--- NOTE | 2017-07-06 09:54 | RADRPT ---
PROCEDURE: US Abdomen (right upper quadrant). CLINICAL INDICATION: Right upper quadrant abdomen pain. TECHNIQUE: Multiple real-time longitudinal and transverse images of the right upper quadrant of th e abdomen were acquired utilizing a curved array transducer. Images were reviewed on a high-resoluti on PACS workstation. COMPARISON: None FINDINGS: The liver is normal in size and normal in echogenicity. There is no focal hepatic lesion. Color Doppler and pulsed Doppler sonography demonstrate normal a ntegrade flow in the portal vein. The gallbladder is normal with no stones or wall thickening. There is no pericholecystic fluid scot ection. The bile ducts are normal with the common bile duct measuring 3.2 mm in diameter. The visualized portions of the pancreas are unremarkable with obscuration of the tail of the pancrea s. No free fluid is present. The right kidney measures 9.6 x 4.4 cm. There is normal echogenicity of the right kidney. There i s no perinephric fluid collection. No hydronephrosis, mass, or calculus is seen. IMPRESSION: 1. Unremarkable right upper quadrant abdomen ultrasound. RPTAT: QQ .Vernon Caruso MD, Date Time Electronically viewed and signed by .Vernon Caruso MD, on 07/06/2017 09:54 .R/
--- NOTE | 2017-07-06 10:49 | RADRPT ---
PROCEDURE: US Pelvis. CLINICAL INDICATION: Pelvic pain, amenorrhea TECHNIQUE: Multiple sonographic images of the pelvis were obtained utilizing a transabdominal and endovaginal technique. The images were reviewed on a PACS workstation. COMPARISON: None. FINDINGS: The uterus is anteverted and measures 6.1 x 3.7 x 2.9 cm. The endometrial echo complex is normal and measures 8 mm. There is no evidence for free fluid. The right ovary has a normal echotexture and me asures 2.5 x 1.9 x 1.8 cm . The left ovary has a normal echotexture and measures 3 x 1.6 x 1.4 cm. No adnexal masses are noted. IMPRESSION: Unremarkable pelvic ultrasound. RPTAT: EE .Yumiko Wilkinson MD, Date Time Electronically viewed and signed by .Yumiko Wilkinson MD, on 07/06/2017 10:48 .F/
[2017-07-06] MEDS ORDERED: ACET500C5 PO (11:06)
[2017-07-06] MEDS ORDERED: ONDA8TAB14 PO (11:06)
--- NOTE | 2017-07-06 11:09 | ERD ---
ER Documentation Chief Complaint Chief Complaint AP, VOMITED X 5 TODAY HPI 26-year-old female presents with vomiting since early this morning. Is nonbilious nonbloody. She vomiting as well. Patient has had right lower quadrant pain for last 2 months. Patient denies . Patient has abnormal periods and last menstrual period was 5 months ago. Denies vaginal discharge or bleeding. ROS All systems reviewed and are negative except as per history of present illness. Medications Home Meds Active Scripts Acetaminophen* (Tylophen*) 500 Mg Capsule, 1 CAP PO Q6H Y for PAIN AND OR ELEVATED TEMP, #15 CAP Prov:MANUEL CONTRERAS MD 07/06/17 Ondansetron (Ondansetron Odt) 8 Mg Tab.rapdis, 8 MG PO Q6H Y for NAUSEA AND/OR VOMITING, #8 TAB Prov:MANUEL CONTRERAS MD 07/06/17 Ibuprofen* (Ibuprofen*) 400 Mg Tablet, 400 MG PO Q6H Y for PAIN, #30 TAB Prov:MARLEN MARTINEZ PA-C 11/27/16 Doxycycline Hyclate* (Doxycycline Hyclate*) 100 Mg Tablet.dr, 100 MG PO BID for 30 Days, TAB Prov:MARLEN MARTINEZ PA-C 11/27/16 Hydrocodone/Acetaminophen ([place] 5-325 Tablet) 1 Each Tablet, 1 TAB PO Q6H Y for PAIN, #7 TAB Prov:YANELY FRANCISCO PA-C 11/25/16 Diphenhydramine Hcl/Zinc Acet (Benadryl Itch Stopping Crm) 28.3 Gm Cream.gm., 1 APPLIC TP BID, #1 TUB Prov:YANELY FRANCISCO PA-C 11/25/16 Doxycycline Hyclate* (Doxycycline Hyclate*) 100 Mg Tablet.dr, 100 MG PO BID for 10 Days, TAB Prov:YANELY FRANCISCO PA-C 11/25/16 Hydrocodone/Acetaminophen ([place] 7.5-325 Tablet) 1 Each Tablet, 1 EACH PO every 4-6 hours, #14 TAB Prov:RAIN SULLIVAN DO 05/18/16 Ibuprofen* (Motrin*) 800 Mg Tab, 800 MG PO Q6H Y for PAIN AND OR ELEVATED TEMP, #30 TAB Prov:RAIN SULLIVAN DO 05/18/16 Reported Medications Albuterol Sulfate* (Proair HFA*) 8.5 Gm Hfa.aer.ad, 1-2 PUFF INH QID Y for SHORTNESS OF BREATH, INH 05/16/14 Allergies Allergies: Coded Allergies: No Known Allergy (Unverified , 05/16/14) PMhx/Soc History of Surgery: No Anesthesia Reaction: No Hx Neurological Disorder: No Hx Respiratory Disorders: Yes (asthma) Hx Cardiac Disorders: No Hx Psychiatric Problems: No Hx Miscellaneous Medical Probl: Yes (MIGRAINES) Hx Alcohol Use: No Hx Substance Use: No Hx Tobacco Use: No Physical Exam Vitals Vital Signs Date Time Temp Pulse Resp B/P Pulse Ox O2 Delivery O2 Flow Rate FiO2 07/06/17 08:40 98.5 94 18 120/77 98 Physical Exam Const: [], [id number], obese. Head: Atraumatic Eyes: Normal Conjunctiva ENT: Normal External Ears, Nose and Mouth. Neck: Full range of motion..~ No meningismus. Resp: Clear to auscultation bilaterally Cardio: Regular rate and rhythm, no murmurs Abd: Soft, minimal tenderness in epigastric area and right lower quadrant. No rebound., non distended. Normal bowel sounds Skin: No petechiae or rashes Back: No midline or flank tenderness Ext: No cyanosis, or edema Neur: Awake and alert Psych: Normal Mood and Affect Result Diagram: 07/06/17 0910 07/06/17 0910 Results 24 hrs Laboratory Tests Test 07/06/17 09:10 White Blood Count 10.710^3/ul Red Blood Count 4.6910^6/ul Hemoglobin 13.4g/dl Hematocrit 41.0% Mean Corpuscular Volume 87.4fl Mean Corpuscular Hemoglobin 28.6pg Mean Corpuscular Hemoglobin Concent 32.7g/dl Red Cell Distribution Width 12.7% Platelet Count 11888^3/UL Mean Platelet Volume 9.7fl Neutrophils % 68.7% Lymphocytes % 19.6% Monocytes % 10.1% Eosinophils % 0.8% Basophils % 0.4% Nucleated Red Blood Cells % 0.0/100WBC Neutrophils # 7.410^3/ul Lymphocytes # 2.110^3/ul Monocytes # 1.110^3/ul Eosinophils # 0.110^3/ul Basophils # 0.010^3/ul Nucleated Red Blood Cells # 0.010^3/ul Urine Color YELLOW Urine Clarity SLIGHTLY CLOUDY Urine pH 5.0 Urine Specific [place] 1.027 Urine Ketones NEGATIVEmg/dL Urine Nitrite NEGATIVEmg/dL Urine Bilirubin NEGATIVEmg/dL Urine Urobilinogen NEGATIVEmg/dL Urine Leukocyte Esterase NEGATIVELeu/ul Urine Microscopic RBC 6/HPF Urine Microscopic WBC 3/HPF Urine Squamous Epithelial Cells FEW/HPF Urine Bacteria FEW/HPF Urine Mucus MANY/HPF Urine Hemoglobin 1+mg/dL Urine Glucose NEGATIVEmg/dL Urine Total Protein NEGATIVEmg/dl Sodium Level 143mmol/L Potassium Level 4.2mmol/L Chloride Level 104mmol/L Carbon Dioxide Level 24mmol/L Anion Gap 19 Blood Urea Nitrogen 10mg/dl Creatinine 0.71mg/dl Glucose Level 97mg/dl Calcium Level 9.3mg/dl Total Bilirubin 0.8mg/dl Direct Bilirubin 0.00mg/dl Indirect Bilirubin 0.8mg/dl Aspartate Amino Transf (AST/SGOT) 24IU/L Alanine Aminotransferase (ALT/SGPT) 40IU/L Alkaline Phosphatase 90IU/L Total Protein 7.5g/dl Albumin 4.4g/dl Globulin 3.10g/dl Albumin/Globulin Ratio 1.41 Lipase 84U/L Current Medications Medications (Trade) Dose Ordered Sig/Jackie Route PRN Reason Start Time Stop Time Status Last Admin Dose Admin Ondansetron HCl (Zofran Inj) 4 mg ONCE STAT IV 07/06/17 09:01 07/06/17 09:03 DC 07/06/17 09:14 Procedures/MDM IV was obtained. CBC is normal and CMP and lipase normal. Urine is negative for significant signs of infection. HCG is negative. Right upper quadrant ultrasound read as normal by the radiologist. Pelvic ultrasound read as normal by the radiologist. Patient was given Zofran 4 mg IV. Patient has benign abdomen on serial exam. Patient presents with vomiting since this morning. She has some right lower quadrant abdominal pain which is mild for the last 2 months of uncertain etiology which may not be related.. There is no current signs or symptoms of appendicitis. In signs and symptoms do not suggest tubo- ovarian abscess or PID. And was sent for gonorrhea and chlamydia. She will be treated with Zofran and Tylenol and return precautions for return for worsening right lower quadrant pain, blood, fevers with primary care doctor this week. The patient was stable with no new complaints during the ER course. Clinically, there is no current evidence to suggest meningitis, sepsis, acute abdomen, pneumonia, acute coronary syndrome, pulmonary embolism, or any other emergent condition appearing to require further evaluation or hospitalization. The patient should certainly return for any new or worsening symptoms per the aftercare instructions. They should otherwise follow-up with her primary care doctor for reevaluation this week. Departure Diagnosis: Primary Impression: Vomiting Vomiting type: unspecified Vomiting Intractability: unspecified Nausea presence: unspecified Qualified Code: R11.10 - Vomiting, intractability of vomiting not specified, presence of nausea not specified, unspecified vomiting type Additional Impression: Abdominal pain Abdominal location: lower abdomen, unspecified Qualified Code: R10.30 - Lower abdominal pain Condition: Stable Patient Instructions: Abdominal Pain, Vomiting (7Y-Adult) Additional Instructions: Examinations normal today. May be early viral illness. Recheck for worsening pain, blood, fevers, new worsening symptoms with primary care doctor this week. MANUEL CONTRERAS MD Jul 06, 2017 11:09
== END 2017-07-06 11:27 | disposition home or self-care (01) ==
LOC: FTE 08:37
DX: R10.31 Right lower quadrant pain (principal); J45.909 Unspecified asthma, uncomplicated
CPT/HCPCS: 36415; 76705; 76830; 76856; 80053; 81001; 83690; 85025; 87591; 96374; J2405; Z7502